=== PATIENT | male | born 1990 | race Native Hawaiian/Other Pacific Islander ===

== ENCOUNTER 2016-11-29 22:26 | Emergency (ER) | payer OTHER ==
[~2016-11-29] VITALS: Ht 167.6 cm; Wt 75.3 kg
[2016-11-29 23:40] LABS: PLATELET COUNT 216 K/uL (142-355)
[2016-11-29 23:50] LABS: POTASSIUM 3.4 mmol/L (3.6-5.2); SODIUM 137 mmol/L (136-145)
[2016-11-30 00:18] VITALS: BP 105/72; TEMP 98.6
== END 2016-11-30 00:24 | disposition home or self-care (01) ==
LOC: ED 22:26
DX: K52.89 Other specified noninfective gastroenteritis and colitis (principal)
CPT/HCPCS: 36415; 80053; 81000; 85027; 96360; 99284

== ENCOUNTER 2017-01-29 22:04 | Emergency (ER) | payer OTHER ==
[~2017-01-29] VITALS: Ht 165.1 cm; Wt 78.0 kg
[2017-01-29 22:34] VITALS: BP 139/90; TEMP 98.9
== END 2017-01-29 23:13 | disposition home or self-care (01) ==
LOC: ED 22:04
DX: R20.0 Anesthesia of skin (principal); M79.601 Pain in right arm

== ENCOUNTER 2017-09-09 21:14 | Outpatient (CLI) | payer OTHER ==
[2017-09-10 00:06] LABS: POTASSIUM 3.6 mmol/L (3.6-5.2); SODIUM 135 mmol/L (136-145)
== END 2017-09-09 21:39 | disposition home or self-care (01) ==
LOC: LABW 21:14
PROVIDERS: Nurse Practitioner Family
DX: Z79.899 Other long term (current) drug therapy (principal); Z51.81 Encounter for therapeutic drug level monitoring; R53.83 Other fatigue
CPT/HCPCS: 36415; 80053; 80061; 84443

== ENCOUNTER 2017-10-02 21:52 | Emergency (ER) | payer OTHER ==
[~2017-10-02] VITALS: Ht 165.1 cm; Wt 73.0 kg
[2017-10-02 22:40] VITALS: BP 140/81; TEMP 98.2
== END 2017-10-02 22:41 | disposition home or self-care (01) ==
LOC: ED 21:52
DX: S10.86XA Insect bite of other specified part of neck, initial encounter (principal); W57.XXXA Bitten or stung by nonvenomous insect and other nonvenomous arthropods, initial encounter; Y92.098 Other place in other non-institutional residence as the place of occurrence of the external cause
CPT/HCPCS: 99282

== ENCOUNTER 2017-10-10 22:17 | Emergency (ER) | payer OTHER ==
[~2017-10-10] VITALS: Ht 165.1 cm; Wt 73.0 kg
[2017-10-10 23:31] VITALS: BP 111/86; TEMP 98.6
== END 2017-10-10 23:38 | disposition home or self-care (01) ==
LOC: ED 22:17
DX: R51 Headache (principal)
CPT/HCPCS: 99282

== ENCOUNTER 2017-10-30 05:24 | Emergency (ER) | payer OTHER ==
[~2017-10-30] VITALS: Ht 61 cm; Wt 73.6 kg
[2017-10-30 05:54] VITALS: BP 109/72; TEMP 98.3
== END 2017-10-30 05:56 | disposition home or self-care (01) ==
LOC: ED 05:24
DX: R22.0 Localized swelling, mass and lump, head (principal)
CPT/HCPCS: 99282

== ENCOUNTER 2018-01-09 04:32 | Emergency (ER) | payer OTHER ==
[~2018-01-09] VITALS: Ht 165.1 cm; Wt 74.8 kg
[2018-01-09 04:46] VITALS: BP 48/87; TEMP 98.7
== END 2018-01-09 04:56 | disposition home or self-care (01) ==
LOC: ED 04:32
DX: K08.89 Other specified disorders of teeth and supporting structures (principal)
CPT/HCPCS: 99281

== ENCOUNTER 2018-03-07 20:14 | Outpatient (CLI) | payer OTHER | END 2018-03-07 22:33 | disposition home or self-care (01) | LOC: LABW 20:14 | PROVIDERS: Family Medicine | DX: E78.4 Other hyperlipidemia (principal) | CPT/HCPCS: 36415; 80061; 84460 ==

== ENCOUNTER 2019-03-12 18:12 | Emergency (ER) | payer OTHER ==
[~2019-03-12] VITALS: Ht 165.1 cm; Wt 72.6 kg
[2019-03-12 18:20] VITALS: TEMP 97.8
[2019-03-12 19:16] LABS: PLATELET COUNT 219 K/uL (142-355)
[2019-03-12 19:38] LABS: POTASSIUM 3.7 mmol/L (3.6-5.2)
[2019-03-12 19:48] VITALS: BP 131/72
== END 2019-03-12 20:21 | disposition home or self-care (01) ==
LOC: ED 18:12
PROVIDERS: Emergency Medicine
DX: K52.89 Other specified noninfective gastroenteritis and colitis (principal); E86.0 Dehydration
CPT/HCPCS: 36415; 80053; 82150; 82550; 82553; 83690; 84484; 85027; 96360; 99284

== ENCOUNTER 2019-06-20 16:32 | Outpatient (CLI) | payer OTHER | END 2019-06-20 16:41 | disposition short-term general hospital (02) | LOC: AMB 16:32 | DX: R10.9 Unspecified abdominal pain (principal) | CPT/HCPCS: A0425; A0429 ==

== ENCOUNTER 2019-06-20 16:46 | Emergency (ER) | payer OTHER ==
[~2019-06-20] VITALS: Ht 167.6 cm; Wt 70.3 kg
[2019-06-20 16:48] VITALS: BP 134/88; TEMP 98.1
[2019-06-20 17:15] LABS: PLATELET COUNT 223 K/uL (142-355)
[2019-06-20 17:26] LABS: POTASSIUM 3.8 mmol/L (3.6-5.2)
[2019-06-20 17:31] LABS: PARTIAL THROMBOPLASTIN TIME 19.9 SECONDS (24.5-33.6)
== END 2019-06-20 17:55 | disposition home or self-care (01) ==
LOC: ED 16:46
PROVIDERS: Hospitalist
DX: K42.9 Umbilical hernia without obstruction or gangrene (principal); R11.2 Nausea with vomiting, unspecified
CPT/HCPCS: 80053; 80320; 81000; 82150; 83690; 85027; 85610; 85730; 96360; 96374; 99284; J1885; J2405

== ENCOUNTER 2019-07-31 01:00 | Outpatient (CLI) | payer OTHER | END 2019-07-31 01:06 | disposition short-term general hospital (02) | LOC: AMB 01:00 | DX: R10.30 Lower abdominal pain, unspecified (principal); R11.10 Vomiting, unspecified | CPT/HCPCS: A0425; A0429 ==

== ENCOUNTER 2019-07-31 01:08 | Emergency (ER) | payer OTHER ==
[~2019-07-31] VITALS: Ht 167.6 cm; Wt 70.3 kg
[2019-07-31 01:46] LABS: PLATELET COUNT 229 K/uL (142-355)
[2019-07-31 03:00] VITALS: BP 122/63; TEMP 97.5
== END 2019-07-31 03:00 | disposition home or self-care (01) ==
LOC: ED 01:08
PROVIDERS: Student in an Organized Health Care Education/Training Program
DX: N13.2 Hydronephrosis with renal and ureteral calculous obstruction (principal)
CPT/HCPCS: 80053; 81000; 83690; 83735; 85027; 96360; 96375; 99284; J1885; J2405

== ENCOUNTER 2020-04-16 19:39 | Emergency (ER) | payer OTHER ==
[~2020-04-16] VITALS: Ht 167.6 cm; Wt 72.6 kg
[2020-04-16 21:42] VITALS: BP 136/94; TEMP 97.8
== END 2020-04-16 21:46 | disposition home or self-care (01) ==
LOC: ED 19:39
DX: S91.332A Puncture wound without foreign body, left foot, initial encounter (principal); W45.0XXA Nail entering through skin, initial encounter; Y92.89 Other specified places as the place of occurrence of the external cause
CPT/HCPCS: 90471; 90715; 96372; 99283; J0696; J1885

== ENCOUNTER 2021-02-18 08:54 | Emergency (ER) | payer OTHER ==
[~2021-02-18] VITALS: Ht 167.6 cm; Wt 72.6 kg
[2021-02-18 10:35] VITALS: BP 140/84; TEMP 98.3
== END 2021-02-18 10:35 | disposition home or self-care (01) ==
LOC: ED 08:54
PROC: 2W3JX1Z Immobilization of Right Finger using Splint (ICD-10-PCS; principal; 2021-02-18)
DX: S62.642A Nondisplaced fracture of proximal phalanx of right middle finger, initial encounter for closed fracture (principal); W31.89XA Contact with other specified machinery, initial encounter; Y92.89 Other specified places as the place of occurrence of the external cause
CPT/HCPCS: 96372; 99283; J1885; J7040

== ENCOUNTER 2021-04-07 15:08 | Outpatient (CLI) | payer OTHER | END 2021-04-07 22:09 | disposition home or self-care (01) | LOC: MRI 15:08 | PROVIDERS: ATTEND Orthopaedic Surgery | DX: S62.642A Nondisplaced fracture of proximal phalanx of right middle finger, initial encounter for closed fracture (principal); M79.641 Pain in right hand; M20.021 Boutonniere deformity of right finger(s) ==

== ENCOUNTER 2021-08-02 13:42 | Emergency (ER) | payer OTHER ==
[~2021-08-02] VITALS: Ht 165.1 cm; Wt 72.6 kg
[2021-08-02 15:25] VITALS: BP 157/72; TEMP 98.2
== END 2021-08-02 15:30 | disposition home or self-care (01) ==
LOC: ED 13:42
PROC: 0HQ0XZZ Repair Scalp Skin, External Approach (ICD-10-PCS; principal; 2021-08-02)
DX: S01.01XA Laceration without foreign body of scalp, initial encounter (principal); W22.8XXA Striking against or struck by other objects, initial encounter; Y92.89 Other specified places as the place of occurrence of the external cause
CPT/HCPCS: 99283

== ENCOUNTER 2021-08-09 23:37 | Emergency (ER) | payer OTHER ==
[~2021-08-09] VITALS: Ht 165.1 cm; Wt 75.8 kg
[2021-08-10 00:25] VITALS: BP 121/76; TEMP 97.5
== END 2021-08-10 00:30 | disposition home or self-care (01) ==
LOC: ED 23:37
DX: Z48.02 Encounter for removal of sutures (principal)

== ENCOUNTER → 2022-01-06 | Emergency (ER) | payer OTHER ==
[~2022-01-06] VITALS: Ht 165.1 cm; Wt 75.8 kg
[2022-01-06 12:10] VITALS: BP 127/89; TEMP 99.6
[2022-01-06 12:32] LABS: PLATELET COUNT 236 K/uL (142-355)
[2022-01-06 12:56] LABS: POTASSIUM 3.7 mmol/L (3.6-5.2)
== END ==
LOC: ED 12:08
PROVIDERS: Emergency Medicine
DX: R10.84 Generalized abdominal pain (principal)
CPT/HCPCS: 80053; 81000; 83690; 84484; 85027; 96360; 96375; 96376; 99284; J2270; J2405

== ENCOUNTER 2022-07-21 16:22 | Emergency (ER) | payer OTHER ==
[~2022-07-21] VITALS: Ht 165.1 cm; Wt 75.7 kg
[2022-07-21 16:24] VITALS: BP 132/88; TEMP 98.4
== END 2022-07-21 17:58 | disposition home or self-care (01) ==
LOC: ED 16:22
DX: N50.82 Scrotal pain (principal)
CPT/HCPCS: 96372; 99283; J1885

== ENCOUNTER 2023-05-09 15:46 | Emergency (ER) | payer OTHER ==
[~2023-05-09] VITALS: Ht 165.1 cm; Wt 61.2 kg
[2023-05-09 15:51] VITALS: BP 117/61; TEMP 98.1
== END 2023-05-09 16:41 | disposition home or self-care (01) ==
LOC: ED 15:46
DX: G43.909 Migraine, unspecified, not intractable, without status migrainosus (principal)
CPT/HCPCS: 99283